=== PATIENT | female | born 1990 | race Caucasian/White ===

== ENCOUNTER → 2017-03-21 | Emergency (ER) | payer OTHER ==
[~2017-03-21] VITALS: Ht 157.5 cm; Wt 49.9 kg
== END | disposition home or self-care (01) ==
LOC: ER 17:14
DX: N83.292 Other ovarian cyst, left side (principal); R10.84 Generalized abdominal pain

== ENCOUNTER 2023-01-23 15:13 | Emergency (ER) | payer OTHER ==
[~2023-01-23] VITALS: Ht 157.5 cm; Wt 58.1 kg
[~2023-01-23 15:13] MED LIST: BACTRIM DS TAB1 EACH PO
== END 2023-01-23 19:07 | disposition home or self-care (01) ==
LOC: ER 15:14
DX: J06.9 Acute upper respiratory infection, unspecified (principal); Z20.822 Contact with and (suspected) exposure to COVID-19